=== PATIENT | male | born 1975 | race Caucasian/White ===

== ENCOUNTER 2018-03-13 15:28 | Emergency (ER) | payer SELFPAY ==
--- NOTE | 2018-03-13 18:14 | ER Document Report ---
ED Medical Screen (RME) - General Chief Complaint: Shortness Of Breath Stated Complaint: SHORT OF BREATH Time Seen by Provider: 03/13/18 18:10 Notes: 42-year-old male to the emergency department chief complaint of possible chest pain but really epigastric abdominal pain and occasional shortness of breath but smokes. States that he was in [place] and had a toothache. Still has a dental abscess and is currently taking amoxicillin. Every time he takes amoxicillin he feels short of breath and feels weak. He has never had anything like this happen before. Smokes on a regular basis. Denies any pain or swelling in his legs or calves. No prior history of DVT or pulmonary embolism. TRAVEL OUTSIDE OF THE [place] IN LAST 30 DAYS: No - HPI Onset: Last week Quality of pain: Achy Severity: Mild Pain Level: 0 Associated Symptoms: None - Related Data Allergies/Adverse Reactions: tramadol Allergy (Verified 03/13/18 15:29) Past Medical History - General Information source: Patient - Social History Cigarette use (# per day): Yes Frequency of alcohol use: None Drug Abuse: None Lives with: Family - Medical History Medical History: Negative Review of Systems - Review of Systems Notes: Constitutional: denies: Chills, Diaphoresis, Fever, Malaise, Weakness EENT: denies: Eye discharge, Blurred vision, Tearing, Double vision, Nose congestion, Nose discharge, Throat swelling, Mouth pain Cardiovascular: denies: Palpitations, Heart racing, Orthopnea, Dyspnea, Chest pain Respiratory: denies: Cough, Hurts to breathe, Wheezing, Shortness of breath Gastrointestinal: Abdominal pain after he takes his antibiotics but no nausea or vomiting. Genitourinary: denies: Burning, Dysuria, Discharge, Frequency, Flank pain, Hematuria Musculoskeletal: denies: Joint pain, Joint swelling, Muscle pain, Muscle stiffness, back pain Hematologic/Lymphatic: denies: Anemia, Easy bleeding, Easy bruising, Blood clots Neurological/Psychological: denies: Confusion, Dementia, Depression, Loss of consciousness Skin: No lesions, no masses, no skin breakdown, no abscesses Physical Exam - Vital signs Vitals: Temp Pulse Resp BP Pulse Ox 97.4 F 92 18 110/64 97 03/13/18 15:51 03/13/18 15:51 03/13/18 15:51 03/13/18 15:51 03/13/18 15:51 Interpretation: Normal - General General appearance: Appears well, Alert - HEENT Head: Normocephalic, Atraumatic Eyes: Normal Pupils: PERRL - Respiratory Respiratory status: No respiratory distress Chest status: Nontender Breath sounds: Normal Chest palpation: Normal - Cardiovascular Rhythm: Regular Heart sounds: Normal auscultation Murmur: No - Abdominal Inspection: Normal Distension: No distension Bowel sounds: Normal Tenderness: Nontender Organomegaly: No organomegaly - Back Back: Normal, Nontender - Extremities General upper extremity: Normal inspection, Nontender, Normal color, Normal ROM , Normal temperature General lower extremity: Normal inspection, Nontender, Normal color, Normal ROM , Normal temperature, Normal weight bearing. No: Denisa's sign - Neurological Neuro grossly intact: Yes Cognition: Normal Orientation: AAOx4 Gee Coma Scale Eye Opening: Spontaneous [place]ee Coma Scale Verbal: Oriented [place] Coma Scale Motor: Obeys Commands [place] Coma Scale Total: 15 Speech: Normal Motor strength normal: LUE, RUE, LLE, RLE Sensory: Normal - Psychological Associated symptoms: Normal affect, Normal mood - Skin Skin Temperature: Warm Skin Moisture: Dry Skin Color: Normal Course - Re-evaluation Re-evalutation: 03/13/18 20:34 Laboratory 03/13/18 03/13/18 03/13/18 19:47 19:47 19:47 WBC 6.9 RBC 5.25 Hgb 16.3 Hct 46.9 MCV 89 MCH 31.0 MCHC 34.8 RDW 13.4 Plt Count 275 Seg Neutrophils % 53.1 Lymphocytes % 35.4 Monocytes % 6.9 Eosinophils % 3.9 Basophils % 0.7 Absolute Neutrophils 3.7 Absolute Lymphocytes 2.4 Absolute Monocytes 0.5 Absolute Eosinophils 0.3 Absolute Basophils 0.0 Sodium 143.2 Potassium 4.5 Chloride 104 Carbon Dioxide 27 Anion Gap 12 BUN 6 L Creatinine 0.74 Est GFR ( Amer) > 60 Est GFR (Non-Af Amer) > 60 Glucose 97 Calcium 9.7 Total Bilirubin 0.4 Direct Bilirubin 0.3 Neonat Total Bilirubin Not Reportable Neonat Direct Bilirubin Not Reportable Neonat Indirect Bili Not Reportable AST 18 ALT 24 Alkaline Phosphatase 56 Creatine Kinase 93 CK-MB (CK-2) 0.43 Troponin I < 0.012 Total Protein 6.9 Albumin 4.2 Lipase 81.4 Chest X-Ray 03/13/18 18:14 IMPRESSION: NO ACUTE RADIOGRAPHIC FINDING IN THE CHEST. 03/13/18 20:44 Labs have been reviewed. Pulmonary embolism rule out criteria score of 0. Unlikely this represents pulmonary embolism. Patient states symptoms have been present on and off for several days and is associated with this medication. His labs are unremarkable. His EKG is normal. Chest x-ray normal. Cardiac troponin normal. At this time he has a heart score of 1 for smoking. I am going to recommend that he stop the amoxicillin and I will start him on some clindamycin instead. We will also prescribe him an inhaler. Recommend smoking cessation. In the event that he develops chest pain, worsening shortness of breath or any other concerns he should return for repeat evaluation. 03/13/18 20:49 - Vital Signs Vital signs: Temp Pulse Resp BP Pulse Ox 98.1 F 64 18 112/69 99 03/13/18 20:48 03/13/18 20:48 03/13/18 15:51 03/13/18 20:48 03/13/18 20:48 - Laboratory Result Diagrams: 03/13/18 19:47 03/13/18 19:47 Laboratory results interpreted by me: 03/13/18 19:47 BUN 6 L - EKG Interpretation by Ks EKG shows normal: Sinus rhythm, [place], Intervals, QRS Complexes, ST-T Waves Doctor's Discharge - Discharge Clinical Impression: Shortness of breath Medication reaction Qualifiers: Encounter type: initial encounter Qualified Code(s): T50.905A - Adverse effect of unspecified drugs, medicaments and biological substances, initial encounter Condition: Good Disposition: HOME, SELF-CARE Instructions: Chest Pain of Unclear Cause ([facility]), Dyspnea, Nonspecific ([facility]), Medication Side Effects ([facility]) Additional Instructions: Please stop the amoxicillin at this time. If you still feel that your tooth is infected and you need to continue with antibiotics the clindamycin prescription filled and follow-up with a dentist. Use the inhaler if you are having wheezing and shortness of breath. If you have to use it more than 3 times in 24 hours then please return for repeat evaluation. If you develop chest pain, worsening shortness of breath, fever, swelling of your legs or any other concerns please return as well. Prescriptions: Albuterol Sulfate [Ventolin Hfa] 8 gm IH Q4H PRN #1 [id number] PRN Reason: Clindamycin HCl 300 mg PO QID 7 Days #28 capsule Referrals: [facility] [Provider Group] - Follow up as needed
--- NOTE | 2018-03-13 18:49 | RADIOLOGY REPORT (SQ) ---
EXAM DESCRIPTION: CHEST 2 VIEWS COMPLETED DATE/TIME: 03/13/2018 6:32 pm REASON FOR STUDY: chest pain COMPARISON: None. EXAM PARAMETERS: NUMBER OF VIEWS: two views TECHNIQUE: Digital Frontal and Lateral radiographic views of the chest acquired. RADIATION DOSE: NA LIMITATIONS: none FINDINGS: LUNGS AND PLEURA: No opacities, masses or pneumothorax. No pleural effusion. MEDIASTINUM AND HILAR STRUCTURES: No masses or contour abnormalities. HEART AND VASCULAR STRUCTURES: Heart normal size. No evidence for failure. BONES: No acute findings. HARDWARE: None in the chest. OTHER: No other significant finding. IMPRESSION: NO ACUTE RADIOGRAPHIC FINDING IN THE CHEST. TECHNICAL DOCUMENTATION: JOB ID: [id number] [id number] [employer]- All Rights Reserved Reading location - IP/workstation name: [employer]
[2018-03-13 20:01] LABS: ABSOLUTE EOSINOPHILS # (AUTO) 0.3 10^3/uL (0.0-0.6); ABSOLUTE LYMPHOCYTES (AUTO) 2.4 10^3/uL (0.5-4.7); ABSOLUTE MONOCYTES (AUTO) 0.5 10^3/uL (0.1-1.4); ABSOLUTE NEUT (AUTO) 3.7 10^3/uL (1.7-8.2); BASOPHILS % (AUTO) 0.7 % (0-2); EOSINOPHILS % (AUTO) 3.9 % (0-6); HEMATOCRIT 46.9 % (37.9-51.0); HEMOGLOBIN 16.3 g/dL (13.5-17.0); LYMPHOCYTES % (AUTO) 35.4 % (13-45); MEAN CORPUSCULAR HGB CONC 34.8 g/dL (32.0-36.0); MEAN CORPUSCULAR VOLUME 89 fl (80-97); MONOCYTES % (AUTO) 6.9 % (3-13); PLATELET COUNT 275 10^3/uL (150-450); RED BLOOD COUNT 5.25 10^6/uL (4.35-5.55); RED CELL DISTRIBUTION WIDTH 13.4 % (11.5-14.0); SEGMENTED NEUTROPHILS % (AUTO) 53.1 % (42-78); TOTAL CELLS COUNTED % (AUTO) 100 %; WHITE BLOOD COUNT 6.9 10^3/uL (4.0-10.5)
[2018-03-13 20:21] LABS: ALANINE AMINOTRANSFERASE 24 U/L (21-72); ALBUMIN 4.2 g/dL (3.5-5.0); ALKALINE PHOSPHATASE 56 U/L (38-126); ANION GAP 12 (5-19); ASPARTATE AMINO TRANSFERASE 18 U/L (17-59); BILIRUBIN,DIRECT 0.3 mg/dL (0.0-0.4); BILIRUBIN,TOTAL 0.4 mg/dL (0.2-1.3); BLOOD UREA NITROGEN 6 mg/dL (7-20); CALCIUM 9.7 mg/dL (8.4-10.2); CARBON DIOXIDE 27 mmol/L (22-30); CHLORIDE 104 mmol/L (98-107); CREATINE KINASE 93 U/L (55-170); GLUCOSE 97 mg/dL (75-110); LIPASE 81.4 U/L (23-300); POTASSIUM 4.5 mmol/L (3.6-5.0); SODIUM 143.2 mmol/L (137-145); TOTAL PROTEIN 6.9 g/dL (6.3-8.2)
[2018-03-13 20:31] LABS: CREATINE KINASE MB 0.43 ng/mL (<4.55)
[2018-03-13 20:33] LABS: TROPONIN I < 0.012 ng/mL
[2018-03-13 20:49] VITALS: BP 112/69
--- NOTE | 2018-03-13 23:37 | EKG REPORT ---
SEVERITY:- NORMAL ECG - SINUS RHYTHM : Confirmed by: Chelsea Mota MD 13-Mar-2018 23:35:59
== END 2018-03-13 21:10 | disposition home or self-care (01) ==
LOC: ER 15:28
DX: R06.02 Shortness of breath (principal); R07.9 Chest pain, unspecified; R10.13 Epigastric pain; T50.905A Adverse effect of unspecified drugs, medicaments and biological substances, initial encounter; F17.210 Nicotine dependence, cigarettes, uncomplicated; X58.XXXA Exposure to other specified factors, initial encounter
CPT/HCPCS: 36415; 71046; 80053; 82550; 82553; 83690; 84484; 85025; 93005; 93010; 99285

== ENCOUNTER 2018-04-12 13:47 | Emergency (ER) | payer MEDICARE, MEDICAID ==
--- NOTE | 2018-04-12 14:30 | ER Document Report ---
ED Medical Screen (RME) - General Chief Complaint: Abdominal Pain Stated Complaint: ABDOMINAL PAIN Time Seen by Provider: 04/12/18 14:28 Mode of Arrival: Ambulatory Information source: Patient, [facility] Records Notes: 42-year-old male presents with complaint of abdominal pain. Patient states that he has had intermittent abdominal pain for 3 weeks. Patient denies any associated nausea, vomiting. He does admit to lightheadedness. Patient states that he has been on 2 antibiotics recently for teeth infection. I have greeted and performed a rapid initial assessment of this patient. A comprehensive ED assessment and evaluation of the patient, analysis of test results and completion of medical decision making process we will be contacted by additional ED providers. PHYSICAL EXAMINATION: GENERAL: Well-appearing, well-nourished and in no acute distress. HEAD: Atraumatic, normocephalic. EYES: Pupils equal round extraocular movements intact, conjunctiva are normal. ENT: Nares patent NECK: Normal range of motion LUNGS: No respiratory distress Musculoskeletal: Normal range of motion NEUROLOGICAL: Normal speech, normal gait. PSYCH: Normal mood, normal affect. SKIN: Warm, Dry, normal turgor, no rashes or lesions noted. TRAVEL OUTSIDE OF THE [place] IN LAST 30 DAYS: No - HPI Onset: Other Onset/Duration: Intermittent Quality of pain: Stabbing Severity: Mild Associated Symptoms: denies: Chest pain, Diarrhea, Nausea Exacerbated by: Denies Relieved by: Denies Similar symptoms previously: Yes Recently seen / treated by doctor: Yes - Related Data Smoking: Cigarettes Frequency of alcohol use: None Drug Abuse: None Allergies/Adverse Reactions: tramadol Allergy (Verified 04/12/18 13:48) Past Medical History - Social History Chew tobacco use (# tins/day): No Frequency of alcohol use: None Drug Abuse: None Renal/ Medical History: Denies: Hx Peritoneal Dialysis Psychiatric Medical History: Reports: Hx Depression - anxiety Past Surgical History: Reports: Hx Orthopedic Surgery Physical Exam - Vital signs Vitals: Temp Pulse Resp BP Pulse Ox 98.4 F 103 H 18 102/61 96 04/12/18 13:57 04/12/18 13:57 04/12/18 13:57 04/12/18 13:57 04/12/18 13:57 Course - Vital Signs Vital signs: Temp Pulse Resp BP Pulse Ox 98.4 F 103 H 18 102/61 96 04/12/18 13:57 04/12/18 13:57 04/12/18 13:57 04/12/18 13:57 04/12/18 13:57
--- NOTE | 2018-04-12 15:06 | RADIOLOGY REPORT (SQ) ---
EXAM DESCRIPTION: ACUTE ABDOMEN SERIES COMPLETED DATE/TIME: 04/12/2018 2:55 pm REASON FOR STUDY: Generalized abdominal pain COMPARISON: None. NUMBER OF VIEWS: Three views. TECHNIQUE: Frontal chest, supine abdomen and upright/decubitus abdomen radiographic images acquired. LIMITATIONS: None. FINDINGS: CHEST: Lungs clear of infiltrates. FREE AIR: None. No abnormal gas collections. BOWEL GAS PATTERN: Nonobstructive pattern. No dilated loops or air fluid levels. CALCIFICATIONS: No suspicious calcifications. HARDWARE: Hardware in the lower lumbar spine. SOFT TISSUES: No gross mass or suggestion of organomegaly. BONES: No acute fracture. No worrisome bone lesions. OTHER: No other significant finding. IMPRESSION: NO RADIOGRAPHIC EVIDENCE FOR ACUTE ABDOMINAL DISEASE. TECHNICAL DOCUMENTATION: JOB ID: [id number] [employer]- All Rights Reserved Reading location - IP/workstation name: [email or web address]
[2018-04-12 15:08] LABS: ABSOLUTE EOSINOPHILS # (AUTO) 0.2 10^3/uL (0.0-0.6); ABSOLUTE LYMPHOCYTES (AUTO) 1.9 10^3/uL (0.5-4.7); ABSOLUTE MONOCYTES (AUTO) 0.4 10^3/uL (0.1-1.4); BASOPHILS % (AUTO) 0.8 % (0-2); EOSINOPHILS % (AUTO) 3.8 % (0-6); HEMATOCRIT 45.2 % (37.9-51.0); HEMOGLOBIN 15.6 g/dL (13.5-17.0); LYMPHOCYTES % (AUTO) 33.8 % (13-45); MEAN CORPUSCULAR HEMOGLOBIN 30.8 pg (27.0-33.4); MEAN CORPUSCULAR HGB CONC 34.4 g/dL (32.0-36.0); MEAN CORPUSCULAR VOLUME 89 fl (80-97); MONOCYTES % (AUTO) 7.8 % (3-13); PLATELET COUNT 261 10^3/uL (150-450); RED BLOOD COUNT 5.05 10^6/uL (4.35-5.55); RED CELL DISTRIBUTION WIDTH 13.9 % (11.5-14.0); SEGMENTED NEUTROPHILS % (AUTO) 53.8 % (42-78); TOTAL CELLS COUNTED % (AUTO) 100 %; WHITE BLOOD COUNT 5.5 10^3/uL (4.0-10.5)
[2018-04-12] MEDS ORDERED: NORMAL SALINE 1000 ML 1,000 ML IV ONE (15:11)
--- NOTE | 2018-04-12 15:11 | ER Document Report ---
ED General - General Chief Complaint: Abdominal Pain Stated Complaint: ABDOMINAL PAIN Time Seen by Provider: 04/12/18 14:28 Mode of Arrival: Ambulatory Information source: Patient Notes: Patient presents complaining of a three-week history of left upper quadrant abdominal pain. Patient states pain has been off and on. Patient denies any nausea vomiting or diarrhea. Patient reports decreased energy as well as weight loss. Patient does acknowledge that he has changed his diet recently. Patient states over the past several months he has gone to a liquid, bland diet due to having multiple teeth extracted. Patient states that he has had regular bowel movements with his last one today. Patient denies any urinary symptoms. Patient denies any chest pain, cough or fever. Patient is concerned that he is having "organ pain". TRAVEL OUTSIDE OF THE [place] IN LAST 30 DAYS: No - HPI Onset: Other - 3 wks Onset/Duration: Waxing and waning Quality of pain: Achy Severity: Moderate Pain Level: Denies Associated symptoms: denies: Nonproductive cough, Productive cough, Diarrhea, Fever, Headache, Nausea, Vomiting Exacerbated by: Denies Relieved by: Denies Similar symptoms previously: No Recently seen / treated by doctor: No - Related Data Allergies/Adverse Reactions: tramadol Allergy (Verified 04/12/18 13:48) Past Medical History - General Information source: Patient, [facility] Records - Social History Smoking Status: Current Every Day Smoker Chew tobacco use (# tins/day): No Smoking Education Provided: Yes Frequency of alcohol use: None Drug Abuse: None Occupation: None Lives with: Family Family History: Reviewed & Not Pertinent Patient has suicidal ideation: No Patient has homicidal ideation: No Renal/ Medical History: Denies: Hx Peritoneal Dialysis Psychiatric Medical History: Reports: Hx Anxiety, Hx Depression Past Surgical History: Reports: Hx Oral Surgery, Hx Orthopedic Surgery Review of Systems - Review of Systems Constitutional: Weight loss - After changing his diet. denies: Fever, Recent illness EENT: No symptoms reported Cardiovascular: No symptoms reported. denies: Chest pain Respiratory: No symptoms reported. denies: Cough, Short of breath Gastrointestinal: Abdominal pain. denies: Diarrhea, Nausea, Vomiting, Constipation, Blood streaked bowels, Poor appetite Genitourinary: No symptoms reported. denies: Dysuria, Flank pain Male Genitourinary: No symptoms reported Musculoskeletal: No symptoms reported. denies: Back pain Skin: No symptoms reported Hematologic/Lymphatic: No symptoms reported Neurological/Psychological: No symptoms reported. denies: Headaches Physical Exam - Vital signs Vitals: Temp Pulse Resp BP Pulse Ox 98.4 F 103 H 18 102/61 96 04/12/18 13:57 04/12/18 13:57 04/12/18 13:57 04/12/18 13:57 04/12/18 13:57 - General General appearance: Appears well, Alert, Anxious In distress: None - HEENT Head: Normocephalic, Atraumatic Eyes: Normal Conjunctiva: Normal Nasal: Normal Mouth/Lips: Normal Mucous membranes: Normal Neck: Normal, Supple. No: Lymphadenopathy - Respiratory Respiratory status: No respiratory distress Chest status: Nontender Breath sounds: Normal. No: Rales, Rhonchi, Stridor Chest palpation: Normal. No: [place] frothy sputum - Cardiovascular Rhythm: Regular Heart sounds: S1 appreciated, S2 appreciated Murmur: No - Abdominal Inspection: Normal Distension: No distension Bowel sounds: Normal Tenderness: Tender - Epig, LUQ Organomegaly: No organomegaly - Back Back: Normal, Nontender. No: CVA tenderness - Extremities General upper extremity: Normal inspection, Normal ROM General lower extremity: Normal inspection, Normal ROM - Neurological Neuro grossly intact: Yes Cognition: Normal [place] Coma Scale Eye Opening: Spontaneous [place] Coma Scale Verbal: Oriented [place] Coma Scale Motor: Obeys Commands [place] Coma Scale Total: 15 - Psychological Associated symptoms: Normal affect, Normal mood - Skin Skin Temperature: Warm Skin Moisture: Dry Skin Color: Normal Course - Re-evaluation Re-evalutation: 04/12/18 17:[address] Bhatia regarding patient presentation and diagnostic evaluation. Recommends adding on troponin given the complaint of left upper quadrant abdominal tenderness. Dr. Bhatia to bedside for bedside fast ultrasound. Patient without any ultrasound findings to explain patient's left upper quadrant abdominal pain. 04/12/18 18:30 Patient with negative troponin test. Patient without any chest pain or back pain or abdominal pain at this time. Patient PERC negative with a heart score of 0. Patient's abdomen soft, nontender. Patient with benign diagnostic evaluation today. Patient very anxious about what may be causing his symptoms and patient feels that he has not had enough blood test to confirm that he does not have something going on. Patient encouraged to follow-up with a primary care provider as well as a tow picker and [employer] network engineer for further evaluation of his symptoms. Attempted to reassure patient regarding his diagnostic evaluation here today. Patient presents with abdominal pain without signs of peritonitis or other life-threatening or serious etiology. Patient appears stable for discharge and has been instructed to return immediately if the symptoms worsen in any way for reevaluation. The patient has been instructed to return if the symptoms worsen or change in any way. - Vital Signs Vital signs: Temp Pulse Resp BP Pulse Ox 98.5 F 75 16 105/70 97 04/12/18 18:00 04/12/18 18:00 04/12/18 18:00 04/12/18 18:00 04/12/18 18:00 - Laboratory Result Diagrams: 04/12/18 14:39 04/12/18 14:39 Laboratory results interpreted by me: 04/12/18 15:21 Urine Ketones 20 H Labs- Entire Visit 04/12/18 04/12/18 04/12/18 14:39 14:39 14:39 WBC 5.5 RBC 5.05 Hgb 15.6 Hct 45.2 MCV 89 MCH 30.8 MCHC 34.4 RDW 13.9 Plt Count 261 Seg Neutrophils % 53.8 Lymphocytes % 33.8 Monocytes % 7.8 Eosinophils % 3.8 Basophils % 0.8 Absolute Neutrophils 3.0 Absolute Lymphocytes 1.9 Absolute Monocytes 0.4 Absolute Eosinophils 0.2 Absolute Basophils 0.0 Sodium 139.8 Potassium 4.7 Chloride 103 Carbon Dioxide 27 Anion Gap 10 BUN 7 Creatinine 0.74 Est GFR ( Amer) > 60 Est GFR (Non-Af Amer) > 60 Glucose 98 Calcium 9.9 Total Bilirubin 0.6 Direct Bilirubin 0.3 Neonat Total Bilirubin Not Reportable Neonat Direct Bilirubin Not Reportable Neonat Indirect Bili Not Reportable AST 18 ALT 24 Alkaline Phosphatase 62 Troponin I < 0.012 Total Protein 6.7 Albumin 4.0 Lipase 70.8 Urine Color Urine Appearance Urine pH Ur Specific [place] Urine Protein Urine Glucose (UA) Urine Ketones Urine Blood Urine Nitrite Urine Bilirubin Urine Urobilinogen Ur Leukocyte Esterase Urine WBC (Auto) U Hyaline Cast (Auto) Urine Mucus (Auto) Urine Ascorbic Acid 04/12/18 15:21 WBC RBC Hgb Hct MCV MCH MCHC RDW Plt Count Seg Neutrophils % Lymphocytes % Monocytes % Eosinophils % Basophils % Absolute Neutrophils Absolute Lymphocytes Absolute Monocytes Absolute Eosinophils Absolute Basophils Sodium Potassium Chloride Carbon Dioxide Anion Gap BUN Creatinine Est GFR ( Amer) Est GFR (Non-Af Amer) Glucose Calcium Total Bilirubin Direct Bilirubin Neonat Total Bilirubin Neonat Direct Bilirubin Neonat Indirect Bili AST ALT Alkaline Phosphatase Troponin I Total Protein Albumin Lipase Urine Color YELLOW Urine Appearance SLIGHTLY-CLOUDY Urine pH 6.0 Ur Specific [place] 1.008 Urine Protein NEGATIVE Urine Glucose (UA) NEGATIVE Urine Ketones 20 H Urine Blood NEGATIVE Urine Nitrite NEGATIVE Urine Bilirubin NEGATIVE Urine Urobilinogen NEGATIVE Ur Leukocyte Esterase NEGATIVE Urine WBC (Auto) 1 U Hyaline Cast (Auto) 4 Urine Mucus (Auto) OCC Urine Ascorbic Acid NEGATIVE - Diagnostic Test Radiology reviewed: Reports reviewed Discharge - Discharge Clinical Impression: Abdominal pain Qualifiers: Abdominal location: left upper quadrant Qualified Code(s): R10.12 - Left upper quadrant pain Condition: Stable Disposition: HOME, SELF-CARE Instructions: Abdominal Pain ([facility]), Family Physicians / Practices, Gastritis ( [facility]) Additional Instructions: Return immediately for any new or worsening symptoms Followup with your primary care provider, call tomorrow to make a followup appointment Follow-up with the [employer] network engineer for recheck Prescriptions: Omeprazole Magnesium [Prilosec Otc] 20 mg PO DAILY #15 tablet. Sucralfate [Carafate 1 gm Tablet] 1 gm PO ACHS #40 tablet Forms: Smoking Cessation Education Referrals: [facility] [Provider Group] - Follow up as needed APOLINAR EID MD [ACTIVE STAFF] - Follow up as needed
[2018-04-12 15:24] LABS: ALANINE AMINOTRANSFERASE 24 U/L (21-72); ALKALINE PHOSPHATASE 62 U/L (38-126); ANION GAP 10 (5-19); ASPARTATE AMINO TRANSFERASE 18 U/L (17-59); BILIRUBIN,DIRECT 0.3 mg/dL (0.0-0.4); BILIRUBIN,TOTAL 0.6 mg/dL (0.2-1.3); BLOOD UREA NITROGEN 7 mg/dL (7-20); CALCIUM 9.9 mg/dL (8.4-10.2); CARBON DIOXIDE 27 mmol/L (22-30); CHLORIDE 103 mmol/L (98-107); GLUCOSE 98 mg/dL (75-110); LIPASE 70.8 U/L (23-300); POTASSIUM 4.7 mmol/L (3.6-5.0); SODIUM 139.8 mmol/L (137-145); TOTAL PROTEIN 6.7 g/dL (6.3-8.2)
[2018-04-12 16:31] LABS: APPEARANCE,URINE SLIGHTLY-CLOUDY; BILIRUBIN,URINE NEGATIVE (NEGATIVE); COLOR,URINE YELLOW; GLUCOSE, URINE NEGATIVE (NEGATIVE); KETONES,URINE 20 mg/dL (NEGATIVE); LEUKOCYTE ESTERASE,URINE NEGATIVE (NEGATIVE); NITRITE,URINE NEGATIVE (NEGATIVE); PROTEIN,URINE NEGATIVE (NEGATIVE); URINE SPECIFIC GRAVITY 1.008; UROBILINOGEN,URINE NEGATIVE mg/dL (<2.0)
--- NOTE | 2018-04-12 17:16 | ER Document Report ---
Doctor's Note Notes: 04/12/18 17:14 I personally and independently obtained patient history and examined the patient and have reviewed the APC's note, reviewed, discussed and agree with their assessment and plan. HISTORY OF PRESENT ILLNESS: Patient is a 42-year-old male that presents to the emergency department for chief complaint of left upper quadrant abdominal pain. ROS: Constitutional: Negative for fever. Cardiovascular: Negative for chest pain. Respiratory: Negative for shortness of breath. Gastrointestinal: Negative for vomiting, positive for abdominal pain Musculoskeletal: Negative for arm, leg or back pain Skin: Negative for rash. Neurological: Negative for weakness or numbness. Unless otherwise stated in this report the patient's positive and negative responses for review of systems for constitutional, eyes, ENT, cardiovascular, respiratory, gastrointestinal, neurological, genitourinary, musculoskeletal, and integumentary systems and related systems to the presenting problem are either as stated in the HPI or were not pertinent or were negative for the symptoms and/or complaints related to the presenting medical problem. PHYSICAL EXAMINATION: Vital signs reviewed, nursing noted reviewed. GENERAL: Well-appearing, well-nourished and in no acute distress. HEAD: Atraumatic, normocephalic. EYES: Eyes appear normal, conjunctiva are normal. ENT: nares patent, oropharynx clear without exudates. Moist mucous membranes. NECK: Normal range of motion, supple without lymphadenopathy LUNGS: Breath sounds clear to auscultation bilaterally and equal. No wheezes rales or rhonchi. HEART: Regular rate and rhythm without murmurs ABDOMEN: Soft, nontender, normoactive bowel sounds. No rebound, guarding, or rigidity. No masses appreciated. EXTREMITIES: Nontender, good range of motion, no pitting or edema. NEUROLOGICAL: No focal neurological deficits. Moves all extremities spontaneously Motor and sensory grossly intact on exam. PSYCH: Normal mood, normal affect. SKIN: Warm, Dry, normal turgor, no rashes or lesions noted on exposed MEDICAL DECISION MAKING: Bedside ultrasound performed: Limited abdominal exam of the right upper quadrant , left upper quadrant, and bladder performed. Indication: Left upper quadrant abdominal pain. Hepatorenal interface was unremarkable, no hepatomegaly, normal contour of the liver, gallbladder appeared normal, no stones noted. No hydronephrosis, the left upper quadrant and splenorenal interface was reviewed, unremarkable, no splenomegaly, no hydronephrosis. Bladder appeared normal in size, no free fluid. I discussed with the patient that many of his symptoms may be related to his acute change in diet and acute weight loss, over the last month, he may have some gastritis as a result of switching to a pure liquid diet, causing his left upper quadrant pain, laboratory data and imaging was reviewed, and I feel the patient can be discharged to home, with follow-up with gastroenterology. Please review detail APC documentation. *Note is created using voice recognition software and may contain spelling, syntax or grammatical errors. 04/12/18 23:02
[2018-04-12 18:03] VITALS: BP 105/70
--- NOTE | 2018-04-12 21:20 | EKG REPORT ---
SEVERITY:- NORMAL ECG - SINUS RHYTHM : Confirmed by: Shakir Bhat MD 12-Apr-2018 21:19:28
== END 2018-04-12 18:34 | disposition home or self-care (01) ==
LOC: ER 13:47
DX: R10.12 Left upper quadrant pain (principal); R63.4 Abnormal weight loss; F17.200 Nicotine dependence, unspecified, uncomplicated
CPT/HCPCS: 93005; 99284; 96360; 36415; 83690; 85025; 80053; 81001; 84484; 74022; 93010; J7030

== ENCOUNTER 2018-05-10 20:55 | Emergency (ER) | payer MEDICARE, MEDICAID ==
[2018-05-10] MEDS ORDERED: NORMAL SALINE 1000 ML 1,000 ML IV ONE (21:19)
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
--- NOTE | 2018-05-10 21:32 | RADIOLOGY REPORT (SQ) ---
Chest two views Compared to 03/13/2018. HISTORY: Shortness of breath. FINDINGS: The heart is not enlarged. No consolidation or pleural effusion. No pulmonary edema or pneumothorax. IMPRESSION: No acute disease.
[2018-05-10 22:08] LABS: ABSOLUTE EOSINOPHILS # (AUTO) 0.3 10^3/uL (0.0-0.6); ABSOLUTE LYMPHOCYTES (AUTO) 2.4 10^3/uL (0.5-4.7); ABSOLUTE MONOCYTES (AUTO) 0.5 10^3/uL (0.1-1.4); BASOPHILS % (AUTO) 0.6 % (0-2); EOSINOPHILS % (AUTO) 4.7 % (0-6); HEMATOCRIT 41.9 % (37.9-51.0); HEMOGLOBIN 14.7 g/dL (13.5-17.0); LYMPHOCYTES % (AUTO) 37.9 % (13-45); MEAN CORPUSCULAR HEMOGLOBIN 31.8 pg (27.0-33.4); MEAN CORPUSCULAR HGB CONC 35.1 g/dL (32.0-36.0); MEAN CORPUSCULAR VOLUME 91 fl (80-97); MONOCYTES % (AUTO) 8.5 % (3-13); PLATELET COUNT 276 10^3/uL (150-450); RED BLOOD COUNT 4.62 10^6/uL (4.35-5.55); RED CELL DISTRIBUTION WIDTH 13.8 % (11.5-14.0); SEGMENTED NEUTROPHILS % (AUTO) 48.3 % (42-78); TOTAL CELLS COUNTED % (AUTO) 100 %; WHITE BLOOD COUNT 6.3 10^3/uL (4.0-10.5)
[2018-05-10 22:13] LABS: APPEARANCE,URINE SLIGHTLY-CLOUDY; BILIRUBIN,URINE NEGATIVE (NEGATIVE); COLOR,URINE YELLOW; GLUCOSE, URINE NEGATIVE (NEGATIVE); KETONES,URINE NEGATIVE (NEGATIVE); LEUKOCYTE ESTERASE,URINE TRACE (NEGATIVE); NITRITE,URINE NEGATIVE (NEGATIVE); PROTEIN,URINE NEGATIVE (NEGATIVE); URINE SPECIFIC GRAVITY 1.018
[2018-05-10 22:25] LABS: ALANINE AMINOTRANSFERASE 21 U/L (21-72); ALBUMIN 3.6 g/dL (3.5-5.0); ALKALINE PHOSPHATASE 58 U/L (38-126); ASPARTATE AMINO TRANSFERASE 15 U/L (17-59); BILIRUBIN,DIRECT 0.4 mg/dL (0.0-0.4); BILIRUBIN,TOTAL 0.4 mg/dL (0.2-1.3); BLOOD UREA NITROGEN 12 mg/dL (7-20); CARBON DIOXIDE 28 mmol/L (22-30); CHLORIDE 105 mmol/L (98-107); GLUCOSE 94 mg/dL (75-110); LIPASE 122.7 U/L (23-300); POTASSIUM 4.5 mmol/L (3.6-5.0); SODIUM 137.4 mmol/L (137-145); TOTAL PROTEIN 6.1 g/dL (6.3-8.2)
[2018-05-10 22:28] LABS: ANION GAP 5 (5-19)
[2018-05-10 23:34] VITALS: BP 104/61
== END 2018-05-10 23:34 | disposition home or self-care (01) ==
LOC: ER 20:55
DX: R10.84 Generalized abdominal pain (principal); R53.83 Other fatigue; F12.90 Cannabis use, unspecified, uncomplicated; F17.200 Nicotine dependence, unspecified, uncomplicated
CPT/HCPCS: 99284; 96360; 36415; 83690; 85025; 80053; 81001; 71046; J7030

== ENCOUNTER 2018-05-12 22:03 | Emergency (ER) | payer MEDICARE, MEDICAID ==
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
[2018-05-12 23:52] VITALS: BP 104/60
== END 2018-05-12 23:53 | disposition home or self-care (01) ==
LOC: ER 22:03
DX: F41.9 Anxiety disorder, unspecified (principal); F32.9 Major depressive disorder, single episode, unspecified; T43.216A Underdosing of selective serotonin and norepinephrine reuptake inhibitors, initial encounter; Z91.128 Patient's intentional underdosing of medication regimen for other reason; Z91.14 Patient's other noncompliance with medication regimen; F17.200 Nicotine dependence, unspecified, uncomplicated; Z88.0 Allergy status to penicillin; Z88.5 Allergy status to narcotic agent
CPT/HCPCS: 99283

== ENCOUNTER 2018-05-14 05:51 | Emergency (ER) | payer MEDICARE, MEDICAID ==
[2018-05-14 06:12] VITALS: BP 105/68
--- NOTE | 2018-05-14 06:29 | ER Document Report ---
ED General - General Chief Complaint: Toothache Stated Complaint: TOOTHACHE Time Seen by Provider: 05/14/18 06:16 Notes: Patient is a 42-year-old male presenting to the emergency department complaining of left lower tooth pain. Patient has an extensive history of dental caries, dental abscesses and tooth removal. Patient currently has no upper teeth. Patient denies fever, nausea, vomiting, chest pain, shortness of breath. States he tried amoxicillin once for a dental infection states it made him itchy and break out in hives. Past medical history: Anxiety Medications: Effexor Allergies: Amoxicillin Patient drinking [employer] coffee upon my entrance to the room. TRAVEL OUTSIDE OF THE [place] IN LAST 30 DAYS: No - Related Data Allergies/Adverse Reactions: amoxicillin Allergy (Verified 05/12/18 22:11) tramadol Allergy (Verified 04/12/18 13:48) Past Medical History - General Information source: Patient - Social History Smoking Status: Current Every Day Smoker Lives with: Family Family History: Reviewed & Not Pertinent Renal/ Medical History: Denies: Hx Peritoneal Dialysis Psychiatric Medical History: Reports: Hx Anxiety, Hx Depression Past Surgical History: Reports: Hx Oral Surgery, Hx Orthopedic Surgery - Immunizations Hx Diphtheria, Pertussis, Tetanus Vaccination: Yes Review of Systems - Review of Systems Constitutional: See HPI EENT: No symptoms reported Cardiovascular: See HPI Respiratory: See HPI Gastrointestinal: See HPI Genitourinary: No symptoms reported Male Genitourinary: No symptoms reported Musculoskeletal: No symptoms reported Skin: See HPI Hematologic/Lymphatic: No symptoms reported Neurological/Psychological: No symptoms reported Physical Exam - Vital signs Vitals: Temp Pulse Resp BP Pulse Ox 97.9 F 71 20 105/68 97 05/14/18 06:10 05/14/18 06:10 05/14/18 06:10 05/14/18 06:10 05/14/18 06:10 - Notes Notes: GENERAL: Alert, interacts well. No acute distress. HEAD: Normocephalic, atraumatic. EYES: Pupils equal, round, and reactive to light. Extraocular movements intact. ENT: Oral mucosa moist, tongue midline. No upper teeth appreciated. Obvious dental caries tooth #18 and 19 with no gum erythema or swelling. No obvious dental fracture seen. negative Ludewig's angina. NECK: Full range of motion. Supple. Trachea midline. LUNGS: Clear to auscultation bilaterally, no wheezes, rales, or rhonchi. No respiratory distress. HEART: Regular rate and rhythm. No murmur ABDOMEN: Soft, non-tender. Non-distended. Bowel sounds present in all 4 quadrants. EXTREMITIES: Moves all 4 extremities spontaneously. No edema, normal radial and dorsalis pedis pulses bilaterally. No cyanosis. BACK: no cervical, thoracic, lumbar midline tenderness. No saddle anesthesia, normal distal neurovascular exam. NEUROLOGICAL: Alert and oriented x3. Normal speech. PSYCH: Normal affect, normal mood. SKIN: Warm, dry, normal turgor. No rashes or lesions noted. Course - Re-evaluation Re-evalutation: Discussed with patient need for oral antibiotic regimen. I will give the patient dental clinic referral. Return precautions discussed. - Vital Signs Vital signs: Temp Pulse Resp BP Pulse Ox 97.9 F 71 20 105/68 97 05/14/18 06:10 05/14/18 06:10 05/14/18 06:10 05/14/18 06:10 05/14/18 06:10 Discharge - Discharge Clinical Impression: Toothache, Dental caries Condition: Stable Disposition: HOME, SELF-CARE Instructions: Toothache ([facility]), Clindamycin ([facility]) Additional Instructions: Return to the emergency room should the tooth pain increase, you develop redness or swelling in your gums, or swelling to her face. Also return for any other concerning symptoms. [facility] [address], [address] Prescriptions: Clindamycin HCl 450 mg PO Q8 10 Days capsule Referrals: JENA MENDEZ PA-C [Primary Care Provider] - Follow up as needed
== END 2018-05-14 06:42 | disposition home or self-care (01) ==
LOC: ER 05:51
DX: K02.9 Dental caries, unspecified (principal); Z88.0 Allergy status to penicillin; Z88.6 Allergy status to analgesic agent
CPT/HCPCS: 99282

== ENCOUNTER 2018-05-15 13:59 | Emergency (ER) | payer MEDICARE, MEDICAID ==
[2018-05-15 14:04] VITALS: BP 111/70
--- NOTE | 2018-05-15 14:34 | ER Document Report ---
HPI - HPI Pain Level: 4 Notes: Patient is a 42-year-old male who presents with chief complaint of burning in his stomach after taking his antibiotics. Patient reports that he has not eating prior to taking the antibiotics. Patient denies any nausea, vomiting, diarrhea. Patient denies any chest pain or shortness of breath. Patient denies any rash. - CONSTITUTIONAL Constitutional: REPORTS: Chills. DENIES: Fever - EENT EENT: DENIES: Sore Throat, Ear Pain, Eye problems - NEURO Neurology: DENIES: Headache - CARDIOVASCULAR Cardiovascular: REPORTS: Chest pain - burning - RESPIRATORY Respiratory: REPORTS: Trouble Breathing. DENIES: Coughing - GASTROINTESTINAL Gastrointestinal: REPORTS: Abdominal Pain. DENIES: Black / Bloody Stools - URINARY Urinary: DENIES: Dysuria, Urgency, Frequency - MUSCULOSKELETAL Musculoskeletal: DENIES: Extremity pain Past Medical History - General Information source: Patient - Social History Smoking Status: Current Every Day Smoker Chew tobacco use (# tins/day): No Frequency of alcohol use: None Drug Abuse: None Family History: Reviewed & Not Pertinent Patient has suicidal ideation: No Patient has homicidal ideation: No Renal/ Medical History: Denies: Hx Peritoneal Dialysis GI Medical History: Reports: Hx Gastritis, Hx Gastroesophageal Reflux Disease Psychiatric Medical History: Reports: Hx Anxiety, Hx Depression - anxiety Past Surgical History: Reports: Hx Oral Surgery, Hx Orthopedic Surgery - back - Immunizations Hx Diphtheria, Pertussis, Tetanus Vaccination: Yes Vertical Provider Document - CONSTITUTIONAL Notes: PHYSICAL EXAMINATION: GENERAL: Well-appearing, well-nourished and in no acute distress. HEAD: Atraumatic, normocephalic. EYES: Pupils equal round extraocular movements intact, conjunctiva are normal. ENT: Nares patent NECK: Normal range of motion LUNGS: No respiratory distress Musculoskeletal: Normal range of motion NEUROLOGICAL: Normal speech, normal gait. PSYCH: Normal mood, normal affect. SKIN: Warm, Dry, normal turgor, no rashes or lesions noted. - INFECTION CONTROL TRAVEL OUTSIDE OF THE [place] IN LAST 30 DAYS: No Course - Re-evaluation Re-evalutation: Patient reports that he has a history of acid reflux. Stopped taking his omeprazole many years ago. Patient reports over the last 3 months he has had increased burning in his stomach and his primary care provider is working on getting him a referral to gastroenterology. Patient has not been eating food prior to taking his clindamycin and he states that it is causing a burning in his stomach. Multiple options were discussed with the patient to include putting him back on an antacid which at first he was resistant to. Ultimately patient will be placed on both Carafate and Prevacid. Patient will make sure he eats prior to taking the clindamycin. He will return to the emergency department if he develops a rash, difficulty breathing or any other symptom that is concerning to him. - Vital Signs Vital signs: Temp Pulse Resp BP Pulse Ox 98.7 F 86 16 111/70 97 05/15/18 14:03 05/15/18 14:03 05/15/18 14:03 05/15/18 14:03 05/15/18 14:03 Discharge - Discharge Clinical Impression: Acid reflux Qualifiers: Esophagitis presence: esophagitis presence not specified Qualified Code(s): K21.9 - Gastro-esophageal reflux disease without esophagitis Condition: Stable Disposition: HOME, SELF-CARE Additional Instructions: Antacid Therapy You have been instructed to start antacid therapy. Antacids directly neutralize stomach acid. This is useful for acid irritation of the esophagus, gastritis, and ulcers. Many antacids affect the bowels. The most common problem is diarrhea. In this case, a pure aluminum hydroxide antacid (such as AlternaGel) can be substituted for some or all doses. If the problem is constipation, add a teaspoon of Milk of Magnesia to each dose. Call the doctor if you experience continued diarrhea or constipation, or if you develop lightheadedness, bloody stool or vomitus, severe abdominal pain, or black stool. Please take your clindamycin on a full stomach. Use the Prevacid and the Carafate as prescribed. Please follow-up with your primary care provider for a referral to gastroenterology. Prescriptions: Lansoprazole [Prevacid 30 Mg Odt Tablet] 30 mg PO BID #40 tab.rap. Sucralfate [Carafate 1 gm Tablet] 1 gm PO ACHS #60 tablet Referrals: JENA MENDEZ PA-C [Primary Care Provider] - Follow up as needed
== END 2018-05-15 14:51 | disposition home or self-care (01) ==
LOC: ER 13:59
DX: K21.9 Gastro-esophageal reflux disease without esophagitis (principal); R10.9 Unspecified abdominal pain; R07.9 Chest pain, unspecified; R06.02 Shortness of breath
CPT/HCPCS: 99283